=== PATIENT | female | born 1980 | race Caucasian/White ===

== ENCOUNTER 2023-07-27 17:17 | Emergency (ER) | payer MEDICAID ==
[~2023-07-27] VITALS: Ht 165.1 cm; Wt 94.3 kg
[2023-07-27 17:41] VITALS: BP 121/44; PULSE 65; RESP 20; TEMP 97.7; O2SAT 98
[2023-07-27] MEDS ORDERED: HYDROcodone/APAP 5/325 MG 1 TAB TAB PO ONE (18:30)
[2023-07-27] MEDS ORDERED: HYDROcodone/APAP 5/325 MG 1 TAB TAB ONE (19:33)
[2023-07-27] MEDS ORDERED: NAPR-54 PO (20:00)
[2023-07-27] MEDS ORDERED: LID5T TP (20:00)
[2023-07-27] MEDS ORDERED: CYCL-711 PO (20:00)
[2023-07-27 20:15] VITALS: BP 118/79; PULSE 78; RESP 17; TEMP 98; O2SAT 98
== END 2023-07-27 20:15 | disposition home or self-care (01) ==
LOC: MED 17:17
DX: M54.50 Low back pain, unspecified (principal); M79.644 Pain in right finger(s); Z79.899 Other long term (current) drug therapy
CPT/HCPCS: 73140; 81002; 99283